=== PATIENT | female | born 1980 | race Caucasian/White ===

== ENCOUNTER 2021-10-11 04:38 | Emergency (ER) | payer BC, OTHER ==
[2021-10-11 05:15] VITALS: BP 143/96; PULSE 88
[2021-10-11] MEDS ORDERED: Alum Hydroxide/Mag Hydroxide 15 ML, Lidocaine 2% 15 ML PO ONE ×2 (05:43)
[2021-10-11] MEDS ORDERED: Lactated Ringers 1,000 ML IV ONE (05:44)
--- NOTE | 2021-10-11 07:18 | EDM.PDOC ---
ED HPI GENERAL MEDICAL PROBLEM - General Chief Complaint: Chest Pain Stated Complaint: CHEST PAIN Time Seen by Provider: 10/11/21 05:30 Source of Information: Reports: Patient History Limitations: Reports: No Limitations - History of Present Illness INITIAL COMMENTS - FREE TEXT/NARRATIVE: 40-year-old lady came to the emergency department for evaluation of chest pain. Her past medical history is significant for COVID-19 infection in August 2020. She has had dyspnea on exertion since that time. Over the last several days she spent quite a bit of time in the car. Yesterday she drove from [place] to [place] for a [employer]. After having dinner out at a restaurant they went back to their hotel room. She woke up at about 3 AM in the morning to go to the bathroom. Upon laying back down in bed she began to have chest pain. She describes the chest pain as a pressure type pain and points to the area just superior to the precordial region on the left side of the chest. She states that the pain was very sharp at times and radiated to her ribs. At times it radiated across her chest to the right side. At times it even radiated down her left arm. She even has complained of some pain radiating into her jaw. She states that she felt a little bit dizzy and just did not feel well. She did not have palpitations or diaphoresis. She does not have any fever that she knows of. She has not had any sick contacts or any other flulike symptoms over the last several days. When questioned about acid reflux and other abdominal type symptoms she states t hat she has felt a little nauseous but has not had any GERD that she could speak of. Chest pain/Left arm Pain Score (Numeric/FACES): 5 - Related Data Allergies Allergy/AdvReac Type Severity Reaction Status Date / Time Penicillins Allergy Hives Verified 10/11/21 05:15 Home Meds: Home Meds L.acidoph,Paracasei, B.lactis [Probiotic] 1 cap PO DAILY 10/11/21 [History] Mv-Min/Iron/Folic/Calcium/Vitk [Women's Daily Formula Tablet] 1 tab PO DAILY 10/11/21 [History] Naproxen Sodium [Aleve] 220 mg PO ASDIRECTED PRN 12/24/21 [History] Past Medical History - Past Health History Medical/Surgical History: Denies Medical/Surgical History [employer] History: Reports: Ectopic - Past Surgical History Female Surgical History: Reports: D&C Social & Family History - Tobacco Use Tobacco Use Status *Q: Never Tobacco User Second Hand Smoke Exposure: No - Caffeine Use Caffeine Use: Reports: Coffee, Soda - Recreational Drug Use Recreational Drug Use: No - Living Situation & Occupation Living situation: Reports: Occupation: Employed ED ROS GENERAL - Review of Systems Review Of Systems: See Below Constitutional: Reports: No Symptoms HEENT: Reports: No Symptoms Respiratory: Reports: Shortness of Breath, Pleuritic Chest Pain Cardiovascular: Reports: Chest Pain, Dyspnea on Exertion Endocrine: Reports: No Symptoms GI/Abdominal: Reports: No Symptoms : Reports: No Symptoms Musculoskeletal: Reports: No Symptoms Skin: Reports: No Symptoms Neurological: Reports: No Symptoms Psychiatric: Reports: No Symptoms Hematologic/Lymphatic: Reports: No Symptoms Immunologic: Reports: No Symptoms ED EXAM, GENERAL - Physical Exam Exam: See Below Exam Limited By: No Limitations General Appearance: Alert, No Apparent Distress Eye Exam: Bilateral Eye: EOMI Head: Atraumatic, Normocephalic Respiratory/Chest: No Respiratory Distress, Lungs Clear Cardiovascular: Normal Peripheral Pulses, Regular Rate, Rhythm, No Murmur Peripheral Pulses: 2+: Radial (L), Radial (R), Dorsalis Pedis (L), Dorsalis Pedis (R) GI/Abdominal: Normal Bowel Sounds, Soft, Non-Tender Back Exam: Normal Inspection Extremities: Normal Inspection, Other (No edema, no obvious swelling, no palpable cords, Homans' sign is negative bilateral) Neurological: Alert, Oriented, CN II-XII Intact, Normal Cognition Psychiatric: Normal Affect, Normal Mood Skin Exam: Warm, Dry, Intact Course - Vital Signs Text/Narrative:: Review of EKG shows normal sinus rhythm, rate 79, normal axis, no obvious ST-T segment abnormalities. Review of labs is grossly within normal limits. Patient may technically have a very mild acute kidney injury given her previous lab but I do not think this meets clinical standards. Review of chest x-ray shows scattered likely groundglass opacities. 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 This patient may be considered a "long hauler." After further discussion with the patient reviewing vital signs she has had significant hypertension for her. Her normal blood pressure runs below 120 and she has been above 140 systolic she is also been 95-100 diastolic. She is also had periods of tachycardia. She continues to have intermittent sharp chest pains. Given her presentation, normal troponin, history of Covid, abnormal chest x-ray, period of time spent in the car over the last 2 days. We will perform a D-dimer. I discussed the risks and benefits of D-dimer with the patient and her significant other and they elected to have the test done. We will also trend troponin with a follow-up troponin. Follow-up troponin and D-dimer negative. Patient will be discharged to home. Last Recorded V/S: Last Vital Signs Temp 36.1 C 10/11/21 04:56 Pulse 88 10/11/21 04:56 Resp 10 L 10/11/21 04:56 BP 143/96 H 10/11/21 04:56 Pulse Ox 99 10/11/21 04:56 - Orders/Labs/Meds Orders: Active Orders 24 hr Category Date Time Status Chest 1V Frontal [CR] Stat Exams 10/11/21 04:46 Taken EKG 12 Lead [EK] Routine Ther 10/11/21 04:47 Ordered Labs: Laboratory Tests 10/11/21 10/11/21 10/11/21 Range/Units 04:58 04:58 04:58 WBC 6.7 (3.0-10.3) x10-3/uL RBC 4.03 (3.60-5.20) x10(6)uL Hgb 11.3 L (11.4-15.5) g/dL Hct 34.1 L (34.2-48.2) % MCV 84.8 (76.7-100.5) fL MCH 28.0 (23.9-33.9) pg MCHC 33.1 (31.9-34.8) g/dL RDW 14.4 (12.3-16.5) % Plt Count 234 (151-488) x10(3)uL MPV 7.1 (7.1-12.4) fL Neut % (Auto) 60.4 (30.8-76.2) % Lymph % (Auto) 28.3 (18.4-52.1) % [place] % (Auto) 8.7 (4.4-15.7) % Eos % (Auto) 2.0 (0.6-8.1) % Baso % (Auto) 0.6 (0.2-1.5) % Neut # (Auto) 4.1 (1.5-6.3) x10-3/uL Lymph # (Auto) 1.9 (1.0-4.4) x10-3/uL [place] # (Auto) 0.6 (0.3-1.0) x10-3/uL Eos # (Auto) 0.1 (0.0-0.8) x10-3/uL Baso # (Auto) 0.0 (0.0-0.1) x10-3/uL D-Dimer, Quantitative (0.0-0.59) mg/LFEU Sodium 139 (135-145) mmol/L Potassium 3.5 (3.5-5.3) mmol/L Chloride 104 (100-110) mmol/L Carbon Dioxide 22 (21-32) mmol/L BUN 13 (7-18) mg/dL Creatinine 1.1 H (0.55-1.02) mg/dL Est Cr Clr Drug Dosing 58.74 mL/min Estimated GFR (MDRD) 54 L (>60) BUN/Creatinine Ratio 11.8 (9-20) Glucose 99 (80-116) mg/dL Calcium 8.7 (8.6-10.2) mg/dL Total Bilirubin 0.6 (0.1-1.3) mg/dL AST 15 (5-25) IU/L ALT 22 (12-36) U/L Alkaline Phosphatase 49 L (56-112) IU/L Troponin I < 4.0 L (4.0-60.3) pg/mL Total Protein 7.2 (6.0-8.0) g/dL Albumin 3.5 (3.5-5.2) g/dL Globulin 3.7 g/dL Albumin/Globulin Ratio 1.0 Urine Color (YELLOW) Urine Appearance (CLEAR) Urine pH (5.0-6.5) Ur Specific [place] (1.010-1.025) Urine Protein (NEGATIVE) mg/dL Urine Glucose (UA) (NORMAL) mg/dL Urine Ketones (NEGATIVE) mg/dL Urine Occult Blood (NEGATIVE) Urine Nitrite (NEGATIVE) Urine Bilirubin (NEGATIVE) Urine Urobilinogen (NEGATIVE) mg/dL Ur Leukocyte Esterase (NEGATIVE) Urine RBC (0-5) Urine WBC (0-5) Ur Squamous Epith Cells (NS,R,O) Urine Bacteria (NS) 10/11/21 10/11/21 10/11/21 Range/Units 05:35 07:10 07:10 WBC (3.0-10.3) x10-3/uL RBC (3.60-5.20) x10(6)uL Hgb (11.4-15.5) g/dL Hct (34.2-48.2) % MCV (76.7-100.5) fL MCH (23.9-33.9) pg MCHC (31.9-34.8) g/dL RDW (12.3-16.5) % Plt Count (151-488) x10(3)uL MPV (7.1-12.4) fL Neut % (Auto) (30.8-76.2) % Lymph % (Auto) (18.4-52.1) % [place] % (Auto) (4.4-15.7) % Eos % (Auto) (0.6-8.1) % Baso % (Auto) (0.2-1.5) % Neut # (Auto) (1.5-6.3) x10-3/uL Lymph # (Auto) (1.0-4.4) x10-3/uL [place] # (Auto) (0.3-1.0) x10-3/uL Eos # (Auto) (0.0-0.8) x10-3/uL Baso # (Auto) (0.0-0.1) x10-3/uL D-Dimer, Quantitative 0.50 (0.0-0.59) mg/LFEU Sodium (135-145) mmol/L Potassium (3.5-5.3) mmol/L Chloride (100-110) mmol/L Carbon Dioxide (21-32) mmol/L BUN (7-18) mg/dL Creatinine (0.55-1.02) mg/dL Est Cr Clr Drug Dosing mL/min Estimated GFR (MDRD) (>60) BUN/Creatinine Ratio (9-20) Glucose (80-116) mg/dL Calcium (8.6-10.2) mg/dL Total Bilirubin (0.1-1.3) mg/dL AST (5-25) IU/L ALT (12-36) U/L Alkaline Phosphatase (56-112) IU/L Troponin I < 4.0 L (4.0-60.3) pg/mL Total Protein (6.0-8.0) g/dL Albumin (3.5-5.2) g/dL Globulin g/dL Albumin/Globulin Ratio Urine Color Yellow (YELLOW) Urine Appearance Clear (CLEAR) Urine pH 5.0 (5.0-6.5) Ur Specific [place] 1.020 (1.010-1.025) Urine Protein Negative (NEGATIVE) mg/dL Urine Glucose (UA) Normal (NORMAL) mg/dL Urine Ketones Negative (NEGATIVE) mg/dL Urine Occult Blood Moderate H (NEGATIVE) Urine Nitrite Negative (NEGATIVE) Urine Bilirubin Negative (NEGATIVE) Urine Urobilinogen Normal (NEGATIVE) mg/dL Ur Leukocyte Esterase Negative (NEGATIVE) Urine RBC 0-5 (0-5) Urine WBC 0-5 (0-5) Ur Squamous Epith Cells Few H (NS,R,O) Urine Bacteria Few H (NS) Meds: Medications Discontinued Medications Generic Name Dose Route Start Last Admin Trade Name Freq PRN Reason Stop Dose Admin Al Hydroxide/Mg Hydroxide 15 0 ml 10/11/21 05:43 10/11/21 05:46 ml/ Lidocaine HCl 15 ml PO 10/11/21 05:44 30 ml ONETIME ONE Administration Lactated Ringer's 1,000 mls @ 999 mls/hr 10/11/21 05:44 10/11/21 05:55 Ringers, Lactated IV 10/11/21 06:44 999 mls/hr BOLUS ONE Administration Departure - Departure Time of Disposition: 08:12 Disposition: Home, Self-Care 01 Condition: Good Clinical Impression: Atypical chest pain, Disease due to severe acute respiratory syndrome coronavirus 2 (SARS-CoV-2) with comorbid pulmonary disease Instructions: Nonspecific Chest Pain, Adult, COVID-19 Frequently Asked Questions Referrals: PCP,Not In Area [Primary Care Provider] - Forms: ED Department Discharge Additional Instructions: Testing for blood clot also known as DVT using laboratory testing was negative. Your likelihood of having a pulmonary embolism or blood clot is very very low. However, you do have atypical chest pain. You also have lingering shortness of breath with exertion after your Covid infection and your chest x-ray is consistent with damage from Covid infection. This is not definitive. You should follow-up with your primary care physician. You may benefit from rehabilitation such as pulmonary rehabilitation. If you develop further chest pain and/or shortness of breath and/or leg swelling you should go to your primary care physician and/or emergency department immediately. Sepsis Event Note (ED) - Evaluation Sepsis Screening Result: No Definite Risk - Focused Exam Vital Signs: Vital Signs Temp Pulse Resp BP Pulse Ox 10/11/21 04:56 36.1 C 88 10 L 143/96 H 99 - My Orders Last 24 Hours: My Active Orders 10/11/21 04:46 Chest 1V Frontal [CR] Stat 10/11/21 04:47 EKG 12 Lead [EK] Routine - Assessment/Plan Last 24 Hours: My Active Orders 10/11/21 04:46 Chest 1V Frontal [CR] Stat 10/11/21 04:47 EKG 12 Lead [EK] Routine
== END 2021-10-11 08:37 | disposition home or self-care (01) ==
LOC: FB.ED 04:38
DX: U07.1 COVID-19 (principal); J98.4 Other disorders of lung; Z86.16 Personal history of COVID-19; Z88.0 Allergy status to penicillin
CPT/HCPCS: 36415; 71045; 80053; 81001; 84484; 85025; 85379; 93005; 99285; A9270; J7120